=== PATIENT | female | born 1990 | race Caucasian/White ===

== ENCOUNTER 2021-05-10 10:52 | Emergency (ER) | payer OTHER, SELFPAY ==
[2021-05-10 10:57] VITALS: BP 130/88; PULSE 98; RESP 16; TEMP 36.7; O2SAT 100
--- NOTE | 2021-05-10 10:57 | ED.URI ---
HPI - URI/Sore Throat General Chief Complaint: Upper Respiratory Infection Stated Complaint: Sore Throat,Ear Pain Time Seen by Provider: 05/10/21 11:13 Source: patient and RN notes reviewed Mode of arrival: ambulatory Limitations: no limitations History of Present Illness HPI Narrative: 30-year-old female with history of asthma presents with concern for 2-day history of body aches, sore throat, nasal congestion, rhinorrhea, cough, ear pressure. She reports she took a rapid Covid test at home this morning that was negative, and is concerned she might not have done the test properly. She reports she has been using her albuterol inhaler every 2 hours, reports she last used last night. She is not vaccinated for Covid or flu. MD elicited complaint: cough and sore throat Related Data Allergies Allergy/AdvReac Type Severity Reaction Status Date / Time egg Allergy Severe Anaphylaxis Verified 01/21/21 10:58 venlafaxine AdvReac Mild Nausea Verified 04/11/21 13:29 Review of Systems Review of Systems: CONSTITUTIONAL: Reports malaise, fatigue. Denies chills, sweats, or fever. EYES: Denies visual changes, redness, or discharge. ENT: Reports rhinorrhea, congestion, sinus pain, otalgia and sore throat. CARDIOVASCULAR: Denies chest pain, palpitations, or edema. RESPIRATORY: Reports cough. Denies dyspnea. GASTROINTESTINAL: Denies abdominal pain, nausea, vomiting, diarrhea SKIN: Denies rash or itching. MUSCULOSKELETAL: Reports myalgia. NEUROLOGIC: Denies headache. All systems reviewed & are unremarkable except as noted in HPI and below PMFSH Past Medical History Medical History Anxiety Asthma Surgical History Surgical History History of loop electrical excision procedure (LEEP) 2016 Previous section x1 [place] teeth extracted 2013 Family History Family History Mother Asthma Sibling Hypertension Heart problem Social History Social History Social History: caffeine-coffee/soda Smoking status: Never smoker Alcohol intake: current Drinks per week: 2 Substance use: never Comments At time of signature, agree with nursing past medical, surgical, social and family history. There is no relevant family history pertinent to the presenting complaint Exam Narrative: GENERAL: Well-appearing, well-nourished, and in no acute distress. HEAD: Normocephalic EYES: PERRLA, conjunctivae clear ENT: Nares clear, clear discharge. Mucous membranes moist. TM pearly haq with dull light reflex bilaterally; no tragal tenderness. Oropharynx not erythematous without lesions. Tonsils not enlarged and without exudate, no drooling, no hoarseness, no trismus, uvula midline. NECK: Supple. No lymphadenopathy CHEST: Clear to auscultation, breath sounds equal. No wheezing, rhonchi, rales, or stridor. No respiratory distress, speaks in full sentences. HEART: Regular rate and rhythm. No murmur heard. SKIN: Warm, dry, no rash. NEURO: Alert and oriented x3. PSYCH: Normal mood and affect Course Course Emergency Course: Patient is aware of diagnosis, understands and agrees to treatment plan. Anticipatory guidance given. Patient agrees to follow-up as directed and is aware of reasons to seek care at the emergency department. Portions of this record may have been created with voice recognition software Vital Signs Vital signs: Reviewed. MDM - URI/Sore Throat MDM Narrative Medical decision making narrative: Differential diagnosis considered: Puckett virus, strep pharyngitis, allergic rhinitis, upper respiratory tract infection, sinusitis, rhinosinusitis, nasopharyngitis. viral pharyngitis, otitis media, otitis externa, pneumonia, bronchitis, viral cough syndrome, viral syndrome, and influenza. Exam findings show no acute conc
[2021-05-11 19:40] LABS: SARS-CoV-2 RNA PCR Positive
== END 2021-05-10 11:28 | disposition home or self-care (01) ==
PROVIDERS: Emergency Provider Nurse Practitioner; PCP Internal Medicine
DX: U07.1 COVID-19 (principal); J45.909 Unspecified asthma, uncomplicated
CPT/HCPCS: 87081; 87804; 87880; 99213; C9803; G0463; U0003; U0005

== ENCOUNTER 2021-12-20 09:47 | Outpatient (CLI) | payer OTHER, SELFPAY ==
--- NOTE | ~2021-12-20 | US_ITS ---
EXAMINATION: US venous doppler LE RT DATE: 12/20/2021 11:21 INDICATION: Superficial lump at the right lower limb TECHNIQUE: Grayscale ultrasound images without and with compression and Doppler ultrasound images of the right lower extremity veins were obtained. COMPARISON: None. FINDINGS: The visualized portions of right common femoral vein, profunda (deep) femoral vein, femoral vein, pop liteal vein, peroneal trunk, posterior tibial veins, peroneal veins, gastrocnemius vein and greater s aphenous vein outflow are patent. Subdermal 5 mm anechoic cystic lesion at the distal right thigh wit h subtle tract extending to the skin surface consistent with epidermoid cyst. IMPRESSION: 1. No deep venous thrombosis in the right lower limb. 2. Palpable abnormality of concern corresponds to a very superficial 5 mm likely epidermoid cyst. Reviewed, dictated and finalized at location A. IMPRESSION: 1. No deep venous thrombosis in the right lower limb. 2. Palpable abnormality of concern corresponds to a very superficial 5 mm likel y epidermoid cyst.
== END 2021-12-20 09:48 | disposition home or self-care (01) ==
PROVIDERS: PCP Internal Medicine; Visit Provider Clinical Nurse Specialist
DX: M79.89 Other specified soft tissue disorders (principal); R22.9 Localized swelling, mass and lump, unspecified
CPT/HCPCS: 93971

== ENCOUNTER 2022-01-31 13:54 | Outpatient (CLI) | payer OTHER, SELFPAY ==
[2022-01-31 18:39] LABS: Basophils Absolute Auto 0.1 K/mm3 (0.0-0.1); Basophils Percent Auto 1.4 % (0.2-1.2); Eosinophils Absolute Auto 0.8 K/mm3 (0-0.3); Eosinophils Percent Auto 7.5 % (0-4.4); Hematocrit 41.4 % (37.0-47.0); Hemoglobin 13.6 g/dL (12.0-15.0); Immature Granulocyte Absolute 0.02 K/mm3 (0.00-0.031); Immature Granulocyte Percent A 0.2 % (0-0.5); Lymphocytes Percent Auto 26.3 % (18.3-44.2); Mean Corpuscular HGB Conc 32.9 g/dl (32-36); Mean Corpuscular Hemoglobin 28.2 pg (26-34); Mean Corpuscular Volume 85.9 fl (80-100); Mean Platelet Volume 10.6 fl (7.4-10.4); Monocytes Absolute Auto 0.7 K/mm3 (0.1-0.6); Monocytes Percent Auto 6.9 % (2.6-8.5); Neutrophils Absolute Auto 5.9 K/mm3 (1.3-6.7); Neutrophils Percent Auto 57.7 % (45.5-73.1); Platelet Count Result 299 k/mm3 (150-375); Red Blood Count 4.82 M/mm3 (4.2-5.4); Red Cell Distribution Width 12.9 % (11.5-14.5); White Blood Count 10.3 K/mm3 (4.5-10.0)
[2022-01-31 19:16] LABS: Alanine Aminotransferase 18 U/L (6-35); Albumin Level 4.5 g/dL (3.5-5.1); Alkaline Phosphatase 58 U/L (38-126); Anion Gap 9 mmol/L (8-16); Aspartate Amino Transferase 57 U/L (14-36); Bilirubin,Total 0.4 mg/dL (0.2-1.3); Blood Urea Nitrogen 12 mg/dL (7-17); Calcium 9.5 mg/dL (8.4-10.2); Carbon Dioxide 29 mmol/L (22-30); Chloride 102 mmol/L (98-107); Estimated Glomerular Filt Rate > 60; Glucose 90 mg/dL (65-110); Potassium 3.8 mmol/L (3.4-5.0); Sodium 140 mmol/L (137-145)
[2022-01-31 19:21] LABS: Iron 93 ug/dL (37-170)
[2022-01-31 19:33] LABS: Percent Iron Saturation 26 % (20-50)
[2022-01-31 20:07] LABS: Ferritin 9.94 ng/mL (6.24-137)
[2022-01-31 20:17] LABS: Folic Acid 11.9 ng/mL (2.76->20)
== END 2022-01-31 13:55 | disposition home or self-care (01) ==
LOC: ANHGOSHLAB 13:56
PROVIDERS: PCP Internal Medicine; Visit Provider Clinical Nurse Specialist
DX: R23.3 Spontaneous ecchymoses (principal); F41.9 Anxiety disorder, unspecified
CPT/HCPCS: 36415; 80053; 82607; 82728; 82746; 83540; 83550; 84443; 85025

== ENCOUNTER 2022-02-20 15:30 | Outpatient (CLI) | payer OTHER, SELFPAY ==
--- NOTE | ~2022-02-20 | US_ITS ---
EXAMINATION: US transvaginal DATE: 02/20/2022 16:14 INDICATION: Vaginal bleeding Comparison:No prior studies for comparison. TECHNIQUE: Multiple transabdominal and endovaginal sonographic images of the pelvis performed. FINDINGS: The uterus measures 8 x 3.4 x 5.9 cm. The endometrial complex measures 7 mm. The right ovary measures 3.2 x 1.6 x 2.7 cm and the left ovary measures 2.6 x 2.4 x 1.9 cm. There ar e small follicles in each ovary. There is a left ovarian cyst measuring 1.9 cm. Normal doppler signal in both ovaries. There is no free fluid in the pelvis. There are no abnormal masses seen on either side. IMPRESSION: 1. Small left ovarian cyst measuring 1.9 cm. Reviewed, dictated and finalized at location A.
== END 2022-02-20 15:31 | disposition home or self-care (01) ==
LOC: ANHIMG 15:32
PROVIDERS: PCP Internal Medicine; Visit Provider Clinical Nurse Specialist
DX: N83.202 Unspecified ovarian cyst, left side (principal)
CPT/HCPCS: 76830

== ENCOUNTER 2022-05-28 08:42 | Emergency (ER) | payer OTHER, SELFPAY ==
--- NOTE | ~2022-05-28 | XR_ITS ---
EXAMINATION: XR chest 2V 05/28/2022 09:11 INDICATION: Cough with shortness of breath PROCEDURE: 2 view chest COMPARISON: No prior studies for comparison. FINDINGS: The lungs are clear. The lungs are mildly hyperinflated, which can be associated with react mario airway disease. The cardiomediastinal silhouette is within normal limits. There are no pleural e ffusions. There is no pneumothorax suspected. IMPRESSION: 1: NO ACUTE CARDIOPULMONARY DISEASE. Reviewed, dictated and finalized at location A. [employer]
[2022-05-28 08:50] VITALS: BP 117/77; PULSE 92; RESP 16; TEMP 36.9; O2SAT 100
--- NOTE | 2022-05-28 09:02 | ED.GENADULT ---
HPI - General Adult General Chief complaint: Upper Respiratory Infection Stated complaint: uri/sob Source: patient Mode of arrival: ambulatory Limitations: no limitations History of Present Illness HPI narrative: Patient presents for evaluation of respiratory symptoms for the last few days. Symptoms include sinus congestion, mucopurulent discharge from her nares, nonproductive cough and shortness of breath. She has an underlying history the of asthma. She has been using her albuterol inhaler around the clock without considerable improvement in her symptoms thereafter. Her son has had several respiratory infections over the past two months. She does not smoke. She has had COVID in the past back in April 2021. She reports some diarrhea recently. No nausea or vomiting. She has tried mucinex for her symptoms. Related Data Home Medications Medication Instructions Recorded Confirmed cetirizine 10 mg tablet (Zyrtec) 10 mg PO DAILY 04/21/22 05/28/22 Allergies Allergy/AdvReac Type Severity Reaction Status Date / Time egg Allergy Severe Anaphylaxis Verified 05/28/22 08:48 venlafaxine AdvReac Mild Nausea Verified 05/28/22 08:48 Review of Systems Review of Systems: CONSTITUTIONAL: Denies fever, chills, or sweats. EYES: Denies visual changes, redness, or discharge. ENT: Reports sinus congestion and mucopurulent discharge from her nares. Reports recent sore throat, now resolved. CARDIOVASCULAR: Denies chest pain, palpitations, or edema. RESPIRATORY: reports chest congestion, cough, shortness of breath. GASTROINTESTINAL:Reports diarrhea. Denies abdominal pain, nausea, or vomiting GENITOURINARY: Denies dysuria or hematuria. SKIN: Denies rash or itching. MUSCULOSKELETAL: Denies back pain, joint pain, or myalgia. NEUROLOGIC: Denies headache, numbness, dizziness, or weakness. PSYCHIATRIC: Denies anxiety or depression. [facility] Past Medical History Medical History Anxiety Asthma COVID-19 Surgical History Surgical History History of loop electrical excision procedure (LEEP) 2016 Previous section (12/15/19) x1 [place] teeth extracted 2013 Family History Family History Mother Asthma Sibling Hypertension Heart problem Grandparent Acute myocardial infarction paternal grandfather Social History Social History Social History: caffeine-coffee/soda Smoking status: Never smoker Alcohol intake: current Drinks per week: 2 Substance use: never Substance use type: does not use Lack of Transportation: No Lack of Food: Never True Current Housing: I Have Housing Concerned About Future Housing: No Difficulty Paying Gas/Electric Bills: No Difficulty Paying for Meds: No Currently Unemployed: No Education: Bachelor's Degree Difficulty w/ Childcare or Family Care: No Additional living arrangements comments: 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 HEAD: Normocephalic, atraumatic. EYES: PERRLA and EOMI. ENT: Nares clear, no rhinorrhea or epistaxis. Mucous membranes moist. Oropharynx without tonsillar hypertrophy exudate or other lesions. Bilateral TMs pearly haq nonbulging NECK: Supple. No adenopathy or masses. No carotid bruits or JVD CHEST: Clear to auscultation. No respiratory distress. No wheezes rales or rhonchi HEART: Regular rate and rhythm. No murmur heard. Normal peripheral pulses. ABDOMEN: Soft, nontender, nondistended, normal active bowel sounds. EXTREMITIES: Normal range of
[2022-05-28] MEDS: methylPREDNISolone SOD SUCC 125 MG VIAL IM (09:10)
[2022-05-28] MEDS: ALBUTEROL SULFATE NEB 2.5 MG/3 ML INH INHALATION (09:12)
[2022-05-28] MEDS: IPRATROPIUM BR 0.02% INH SOLN 0.5 MG/2.5 ML VIAL INHALATION (09:12)
== END 2022-05-28 10:03 | disposition home or self-care (01) ==
PROVIDERS: Emergency Provider Nurse Practitioner; PCP Clinical Nurse Specialist
DX: J06.9 Acute upper respiratory infection, unspecified (principal); J45.901 Unspecified asthma with (acute) exacerbation; Z20.822 Contact with and (suspected) exposure to COVID-19; Z86.16 Personal history of COVID-19
CPT/HCPCS: 71046; 87426; 87804; 94640; 96372; 99213; C9803; G0463; J2930

== ENCOUNTER 2022-11-12 17:30 | Emergency (ER) | payer OTHER, SELFPAY ==
[2022-11-12 17:37] VITALS: BP 96/84; PULSE 99; RESP 16; TEMP 36.8; O2SAT 100
--- NOTE | 2022-11-12 17:40 | ED.URI ---
HPI - URI/Sore Throat General Chief Complaint: Upper Respiratory Infection Stated Complaint: cough,muscle sore Time Seen by Provider: 11/12/22 17:41 Source: patient and RN notes reviewed Mode of arrival: ambulatory Limitations: no limitations History of Present Illness HPI Narrative: 32 y/o female with hx asthma presented for c/o cough, sinus congestion and ear pressure, with neck and low back soreness for one week. Endorses deep breaths cause coughing fits, cough is worse in the morning and at night, and is productive of green mucous. Patient has used rescue inhaler 5 times today without improvement in any symptoms. Also taking Zyrtec, sudafed, and Theraflu. States she feels horrible. Did not test for covid. Denies sick contacts. Denies sob, wheezing, n/v/d/f/c. MD elicited complaint: cough Related Data Home Medications Medication Instructions Recorded Confirmed cetirizine 10 mg tablet (Zyrtec) 10 mg PO DAILY 04/21/22 11/12/22 albuterol sulfate 90 mcg/actuation 2 inh inhalation Q4H PRN shortness 11/12/22 11/12/22 aerosol inhaler of breath or wheezing Allergies Allergy/AdvReac Type Severity Reaction Status Date / Time egg Allergy Severe Anaphylaxis Verified 11/12/22 17:36 venlafaxine AdvReac Mild Nausea Verified 11/12/22 17:36 Review of Systems Review of Systems: CONSTITUTIONAL: Denies malaise, chills, sweats, fever EYES: Denies visual changes, redness, or discharge ENT: Reports rhinorrhea, congestion, sinus pain, otalgia, denies sore throat CARDIOVASCULAR: Denies chest pain, palpitations, edema RESPIRATORY: Reports cough, post nasal drainage. Denies dyspnea GASTROINTESTINAL: Denies abdominal pain, nausea, vomiting, diarrhea SKIN: Denies rash or itching MUSCULOSKELETAL: Endorses myalgia NEUROLOGIC: Denies headache PMFSH Past Medical History Medical History Abnormal bleeding in menstrual cycle Abnormal bruising Abnormal laboratory test result Allergies Anxiety Asthma Contraceptive management COVID-19 Discoloration of skin Encounter to establish care Galactorrhea Irregular menses Missed menses Poison jose Procreative management Screening for lipoid disorders Screening for metabolic disorder Upper respiratory infection Vitamin D deficiency Surgical History Surgical History History of loop electrical excision procedure (LEEP) 2016 Previous section (12/15/19) x1 [place] teeth extracted 2013 Family History Family History Mother Asthma Sibling Hypertension Heart problem Grandparent Acute myocardial infarction paternal grandfather Social History Social History Social History: caffeine-coffee/soda Smoking status: Never smoker Alcohol intake: current Drinks per week: 2 Substance use: never Substance use type: does not use Lack of Transportation: No Lack of Food: Never True Current Housing: I Have Housing Concerned About Future Housing: No Difficulty Paying Gas/Electric Bills: No Difficulty Paying for Meds: No Currently Unemployed: No Education: Bachelor's Degree Difficulty w/ Childcare or Family Care: No Living arrangements: other Additional living arrangements comments: Occupation/Education: other 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 HEAD: Normocephalic EYES: PERRLA, conjunctivae clear ENT: Mucous membranes moist. Nasal congestion, TMs pearly haq with dull light reflex bilaterally; no tragal tenderness. Oropharynx not erythematous without lesions or exudate, no drool
== END 2022-11-12 17:58 | disposition home or self-care (01) ==
PROVIDERS: Emergency Provider Nurse Practitioner Family; PCP Internal Medicine
DX: J06.9 Acute upper respiratory infection, unspecified (principal); J45.909 Unspecified asthma, uncomplicated; E55.9 Vitamin D deficiency, unspecified; F41.9 Anxiety disorder, unspecified
CPT/HCPCS: 99213; G0463

== ENCOUNTER 2023-02-04 10:20 | Emergency (ER) | payer OTHER, SELFPAY ==
--- NOTE | 2023-02-04 10:25 | ED.URI ---
HPI - URI/Sore Throat General Chief Complaint: Upper Respiratory Infection Stated Complaint: Sore Throat;Stiffness in neck Time Seen by Provider: 02/04/23 10:30 Source: patient Mode of arrival: ambulatory Limitations: no limitations History of Present Illness HPI Narrative: Afsaneh is a 32-year-old female patient presenting to the clinic today with complaints of sore throat, neck stiffness, runny nose, headache, and congestion x1 day. She reports her symptoms started last night. Reports that she has been in [place] all weekend and was around a lot of people. She denies any known fever or chills. MD elicited complaint: sore throat and nasal congestion Related Data Home Medications Medication Instructions Recorded Confirmed cetirizine 10 mg tablet (Zyrtec) 10 mg PO DAILY 04/21/22 02/04/23 albuterol sulfate 90 mcg/actuation 2 inh inhalation Q4H PRN shortness 11/12/22 02/04/23 aerosol inhaler of breath or wheezing Allergies Allergy/AdvReac Type Severity Reaction Status Date / Time egg Allergy Severe Anaphylaxis Verified 02/04/23 10:29 venlafaxine AdvReac Mild Nausea Verified 02/04/23 10:29 Review of Systems Review of Systems: Pertinent positives per HPI. Patient denies any fever, chills, rash, headache, visual changes, dizziness, cough, shortness of breath, chest pain, palpitations, nausea, vomiting, diarrhea, constipation, abdominal pain, or any urinary issues. [facility] Past Medical History Medical History Abnormal bleeding in menstrual cycle Abnormal bruising Abnormal laboratory test result Allergies Anxiety Asthma Contraceptive management COVID-19 Discoloration of skin Encounter to establish care Galactorrhea Irregular menses Missed menses Poison jose Procreative management Screening for lipoid disorders Screening for metabolic disorder Upper respiratory infection Vitamin D deficiency Surgical History Surgical History History of loop electrical excision procedure (LEEP) 2016 Previous section (12/15/19) x1 [place] teeth extracted 2013 Family History Family History Mother Asthma Sibling Hypertension Heart problem Grandparent Acute myocardial infarction paternal grandfather Social History Social History Social History: caffeine-coffee/soda Smoking status: Never smoker Alcohol intake: current Drinks per week: 2 Substance use: never Substance use type: does not use Lack of Transportation: No Lack of Food: Never True Current Housing: I Have Housing Concerned About Future Housing: No Difficulty Paying Gas/Electric Bills: No Difficulty Paying for Meds: No Currently Unemployed: No Education: Bachelor's Degree Difficulty w/ Childcare or Family Care: No Living arrangements: other Additional living arrangements comments: Occupation/Education: other 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 There is no relevant family history pertinent to the patient complaint. Exam Narrative: General: Well-developed, well nourished, in no apparent distress Head: Normocephalic, atraumatic Eyes: Pupils equally round and reactive to light bilaterally, EOM intact, sclera and conjunctive clear, no discharge, lids normal Ears: TMs intact and clear, ear canals clear, no drainage, grossly hearing normal. Nose: Nares patent, clear nasal discharge, no inflammation, no sinus tenderness. Mouth: Oral pharynx red with mild tonsillar enlargement without lesio
[2023-02-04 10:30] VITALS: BP 114/82; PULSE 104; RESP 18; TEMP 37; O2SAT 100
[2023-02-04 10:38] VITALS: BP 114/82; PULSE 104; RESP 18; TEMP 37; O2SAT 100
--- NOTE | 2023-02-04 14:00 | PC.NURSE ---
1058- i entered in error a positive result on pts covid, and this patient is negative, and management aware so they can change the result. thanks.
== END 2023-02-04 10:58 | disposition home or self-care (01) ==
PROVIDERS: Emergency Provider Nurse Practitioner Family; PCP Clinical Nurse Specialist
DX: J02.0 Streptococcal pharyngitis (principal); Z20.822 Contact with and (suspected) exposure to COVID-19; J45.909 Unspecified asthma, uncomplicated; Z86.16 Personal history of COVID-19; F41.9 Anxiety disorder, unspecified
CPT/HCPCS: 87426; 87880; 99213; C9803; G0463

== ENCOUNTER 2023-06-05 00:32 | Day surgery (SDC) | payer OTHER, SELFPAY ==
[2023-05-23 08:33] VITALS: BMI 22.3
--- NOTE | 2023-06-01 10:54 | SUR.PREOP ---
Patient called regarding upcoming procedure. Reviewed preop instructions, appointment times, and procedure prep.
[2023-06-05 07:03] VITALS: BP 121/81; PULSE 67; RESP 18; TEMP 36.8; O2SAT 99
[2023-06-05] MEDS: LACTATED RINGERS 1,000 ML 150 ML IV CONT (07:15)
--- NOTE | 2023-06-05 07:52 | WPDANESEPPF ---
Anes - Initial Pre Proc Eval Procedure: Operation Date: 06/05/23 08:00 Proposed Procedures p Esophagogastroduodenoscopy & Colonoscopy - Ayo Garza MD Date/Time: 06/05/23 07:52 Surgeon: Aoy Garza MD Pre Op Diagnosis: abdominal pain, nausea, dysphagia,gaseous Patient Data Age: 32 Gender: F Height: 1.63 m Weight: 58.1 kg Last Vital Signs Temp 98.2 F 06/05/23 07:03 Pulse 67 06/05/23 07:03 Resp 18 06/05/23 07:03 BP 121/81 06/05/23 07:03 Pulse Ox 99 06/05/23 07:03 O2 Del Method Room Air 06/05/23 07:03 Allergies Allergy/AdvReac Type Severity Reaction Status Date / Time egg Allergy Severe Anaphylaxis Verified 06/05/23 07:02 venlafaxine AdvReac Mild Nausea Verified 06/05/23 07:02 Home Medications Medication Instructions Recorded Confirmed Type cetirizine 10 mg tablet (Zyrtec) 10 mg PO DAILY 04/21/22 05/23/23 History albuterol sulfate 90 mcg/actuation 2 inh inhalation Q4H PRN shortness 11/12/22 05/23/23 History aerosol inhaler of breath or wheezing omeprazole 20 mg capsule,delayed 20 mg PO DAILY 1 month #30 caps 05/18/23 05/23/23 Rx release fluoxetine 10 mg capsule (Prozac) 10 mg PO DAILY 05/23/23 05/23/23 History Patient hx anesthesia problems: none Family hx anesthesia problems: none Results Review: All pre-operative results and documents have been reviewed as part of the pre-operative evaluation. [facility] Past Medical History Medical History (Updated 05/18/23 @ 10:15 by Carey Reeves APN-C) Abnormal bleeding in menstrual cycle Abnormal bruising Abnormal laboratory test result Allergies Anxiety Asthma Contraceptive management COVID-19 Discoloration of skin Encounter to establish care Galactorrhea Irregular menses Missed menses Nausea Poison jose Procreative management Screening for lipoid disorders Screening for metabolic disorder Upper respiratory infection Vitamin D deficiency Surgical History Surgical History History of loop electrical excision procedure (LEEP) 2016 Previous section (12/15/19) x1 [place] teeth extracted 2014 Family History Family History Mother Asthma Sibling Hypertension Heart problem Grandparent Acute myocardial infarction paternal grandfather Social History Social History (Reviewed 03/01/23 @ 09:44 by Madelaine Montgomery 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 the Patient): Straight or Heterosexual Spiritual care concerns: No Anes - Eval Final PreProcedure Day of Procedure 06/05/23 07:52 Patient weight: normal Heart: regular rate and rhythm Lungs: clear to auscultation Airway: Mallampati scale class II Neurological: alert and oriented Last oral intake: >/= 8 hours ASA classification: II Emergent: no Anesthetic plan: proceed Anesthesia type and monitoring: general GIVS and standard monitoring Results Review: All pre-operative results and documents have been reviewed as part of the pre-operative evaluation. Informed Consent: The patient's anesthetic plan and its attendant risks and benefits were discussed with the patient/family/POA. Questions
--- NOTE | 2023-06-05 08:00 | WPDHPUPDATE1 ---
History and Physical Update Update Date/Time: 06/05/23 08:00 History and Physical has been reviewed, including an updated exam of the patient. There are NO changes in the patient's condition. Risks, benefits, and alternatives have been discussed and questions answered. Patient agrees to proceed with procedure.
[2023-06-05 08:40] VITALS: BP 86/54; PULSE 70; RESP 18; O2SAT 100
--- NOTE | 2023-06-05 08:40 | SUR.OPER ---
EGD START 810, END 820 COLONOSCOPY START 825, END 835
[2023-06-05 08:50] VITALS: BP 94/64; PULSE 57; RESP 18; O2SAT 100
[2023-06-05 09:00] VITALS: BP 110/94; PULSE 57; RESP 18; O2SAT 100
== END 2023-06-05 09:08 | disposition home or self-care (01) ==
PROVIDERS: PCP Internal Medicine; Visit Provider Internal Medicine Gastroenterology
PROC: 0DJ08ZZ Inspection of Upper Intestinal Tract, Via Natural or Artificial Opening Endoscopic (ICD-10-PCS; CPT 43235; principal; 2023-06-05 08:00)
DX: K59.00 Constipation, unspecified (principal); K22.2 Esophageal obstruction; K20.0 Eosinophilic esophagitis; K29.50 Unspecified chronic gastritis without bleeding; J45.909 Unspecified asthma, uncomplicated; F41.9 Anxiety disorder, unspecified; Z79.51 Long term (current) use of inhaled steroids
CPT/HCPCS: 45378; 43249; 43239; 88305; C1726; J2405; J2704; J3010; J7120

== ENCOUNTER 2023-10-21 08:05 | Emergency (ER) | payer OTHER, SELFPAY ==
--- NOTE | 2023-10-21 08:08 | ED.GENADULT ---
HPI - General Adult General Chief complaint: Upper Respiratory Infection Stated complaint: EARACHE/CHEST PAIN/COUGH/CAN'T TAKE DEEP BREATH Time Seen by Provider: 10/21/23 08:08 Source: patient Mode of arrival: ambulatory Limitations: no limitations History of Present Illness HPI narrative: 32-year-old female patient presents to the [facility] with complaints of cold symptoms for the past week. Patient states she has had congestion, runny nose, pain to bilateral ears and a cough. Patient does have history of asthma and [place] been introduced to some more allergens and normal. Patient states that her son that she has been taking care of also currently has croup. Patient states she has been coughing a lot and has been having a lot of pain in her chest when she takes a breath in and feels that she just cannot catch her breath. Patient states she has tried [id number] cough medication, Tamiflu. Patient states she does take Zyrtec daily. Denies any fevers, body aches or chills. Denies any abdominal pain, nausea, vomiting or diarrhea Related Data Home Medications Medication Instructions Recorded Confirmed cetirizine 10 mg tablet (Zyrtec) 10 mg PO DAILY 04/21/22 10/21/23 Allergies Allergy/AdvReac Type Severity Reaction Status Date / Time egg Allergy Severe Anaphylaxis Verified 10/21/23 08:15 venlafaxine AdvReac Mild Nausea Verified 10/21/23 08:15 Review of Systems Review of Systems: CONSTITUTIONAL: Denies fever, chills, or sweats. EYES: Denies visual changes, redness, or discharge. ENT: positive rhinorrhea, congestion, denies sore throat, positive bilateral otalgia. CARDIOVASCULAR: positive chest pain with inhalation, deniespalpitations, or edema. RESPIRATORY: positive cough with intermittent dyspnea. GASTROINTESTINAL: Denies abdominal pain, nausea, vomiting, or diarrhea. GENITOURINARY: Denies dysuria or hematuria. SKIN: Denies rash or itching. MUSCULOSKELETAL: Denies back pain, joint pain, or myalgia. NEUROLOGIC: Denies headache, numbness, or weakness. PSYCHIATRIC: Denies anxiety or depression. [facility] Past Medical History Medical History Abnormal bleeding in menstrual cycle Abnormal bruising Abnormal laboratory test result Allergies Anxiety Asthma Contraceptive management COVID-19 Discoloration of skin Encounter to establish care Eosinophilic esophagitis Galactorrhea Irregular menses Missed menses Nausea Poison jose Procreative management Screening for lipoid disorders Screening for metabolic disorder Upper respiratory infection Vitamin D deficiency Surgical History Surgical History History of loop electrical excision procedure (LEEP) 2016 Previous section (12/15/19) x1 [place] teeth extracted 2013 Family History Family History Mother Asthma Sibling Hypertension Heart problem Grandparent Acute myocardial infarction paternal grandfather Social History Social History Social History: caffeine-coffee/soda Smoking status: Never smoker Alcohol intake: current Drinks per week: 2 Substance use: never Substance use type: does not use Lack of Transportation: No Lack of Food: Never True Current Housing: I Have Housing Concerned About Future Housing: No Difficulty Paying Gas/Electric Bills: No Difficulty Paying for Meds: No Currently Unemployed: No Education: Bachelor's Degree Difficulty w/ Childcare or Family Care: No Living arrangements: with family Additional living arrangements comments: Occupation/Education: other 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
[2023-10-21 08:15] VITALS: BP 128/86; PULSE 95; RESP 16; TEMP 36.6; O2SAT 100
== END 2023-10-21 08:30 | disposition home or self-care (01) ==
PROVIDERS: Emergency Provider Nurse Practitioner Family; PCP Clinical Nurse Specialist
DX: R09.1 Pleurisy (principal); J02.9 Acute pharyngitis, unspecified; R05.9 Cough, unspecified; J45.909 Unspecified asthma, uncomplicated; Z86.16 Personal history of COVID-19
CPT/HCPCS: 99213; G0463

== ENCOUNTER 2024-04-10 12:51 | Outpatient (CLI) | payer OTHER, SELFPAY ==
--- NOTE | ~2024-04-10 | MMUS_ITS ---
EXAMINATION: MM diagnostic kameron BI w omar, US breast LT limited HISTORY: Left breast pain TECHNIQUE: 3-D tomosynthesis images of the breasts were performed and synthetic 2-D images were gener ated. CAD analysis was submitted and interpreted. High resolution limited left breast ultrasound was performed. COMPARISON: None BREAST PARENCHYMAL COMPOSITION:Dense: The breasts are extremely dense, which lowers the sensitivity o f mammography. FINDINGS: MAMMOGRAPHIC FINDINGS: Parenchymal pattern of the breasts is unremarkable. No suspicious mass lesion or distortion seen. No suspicious microcalcification. ULTRASOUND: Sonographic imaging of the area of concern left breast shows no significant abnormality. No solid or cystic lesion identified. IMPRESSION: No mammographic evidence of malignancy. No mammographic or sonographic correlate seen at the area of pain in the left breast. BI-RADS Category 1: Negative Reviewed, dictated and finalized at [facility]. 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 No mammographic or sonographic correla te seen at the area of pain in the left breast. BI-RADS Category 1: Negative
== END 2024-04-10 12:52 | disposition home or self-care (01) ==
LOC: ANHIMG 12:52
PROVIDERS: PCP Clinical Nurse Specialist; Visit Provider Student in an Organized Health Care Education/Training Program
DX: N64.4 Mastodynia (principal)
CPT/HCPCS: 76642; 77062; 77066; G0279

== ENCOUNTER 2024-04-24 02:23 | Day surgery (SDC) | payer OTHER, SELFPAY ==
[2024-04-14 15:28] VITALS: BMI 22.4
--- NOTE | 2024-04-14 15:49 | PC.NURSE ---
Report to the Outpatient Waiting Room, entrance under the green pavilion located off [facility], at 0600 on 04-24-24. Planned Procedure Time: 0730.? Time changes happen often and if your time is changed the preop area will call you the afternoon before. - You and your visitor will be asked to self-screen and do not enter if you have any COVID symptoms. Please call surgeon if you need to reschedule. - A mask is optional within the hospital at this time. Patients may have clear liquids (water, carbonated beverages, clear teas, apple juice) until 3 hours prior to surgery with a maximum of 20 ounces. 0430 - No food from midnight until time of surgery and no smoking. This includes no chewing gum, candy or mints. - Infants may have breast milk until 4 hours before surgery, infant formula 6 hours prior to surgery. - Children will be allowed to drink immediately following surgery.? If applicable, please bring a bottle or sippy cup to assist with drinking. Juice, water, soda, and popsicles are readily available.? For infants on formula, please bring formula the day of surgery.? Pacifiers are allowed. Take only the following medications with a SIP of water on the morning of surgery: Fluoxetine Bring inhaler to the hospital DOS with you. DO NOT STOP ANY OF YOUR OTHER PRESCRIPTION MEDICATIONS PRIOR TO SURGERY EXCEPT THE FOLLOWING Medications to discontinue per physician: N/A Please no make-up, nail italian, hairspray, perfume, deodorant, or body powder the day of surgery.? No jewelry (including any body piercings) or valuables the day of surgery, leave them at home.? Please take a shower or bath the night before, or the morning of, surgery with an antibacterial soap.? Wear comfortable, loose fitting clothing.? Children are encouraged to wear pajamas. - Jewelry must be removed prior to entering the operating room.? Rings and piercings that are not removed may be cut off. - The hospital will not accept responsibility for valuables.? - Please leave all valuables, including medications, at home the day of surgery. If you are going home after surgery, a licensed tour bus driver must drive you home.? - NO public transportation without another adult if you receive anesthesia. - We recommend that an adult stay with you for 24 hours following discharge. - We also recommend that you do not drive, make important decision, drink alcoholic beverages, or take any drugs that were not prescribed by your health care provider for at least 24 hours after your discharge time. For Pediatric surgeries, we recommend two adults accompany the child home. Follow any additional instructions given to you from your surgeon. Telephone instructions given to Steven Wilburn and asked if any additional questions and then verbalized understanding. Patient advised to call surgeon office or pre surgery nurse liaison [phone] if any additional questions.
[2024-04-24] VITALS (10 sets, daily range): BP systolic 98–141; BP diastolic 64–92; PULSE 74–98; RESP 12–18; TEMP 36.5–36.9; O2SAT 98–100; BMI 22.3
--- NOTE | 2024-04-24 06:49 | P.PNAN_ITS ---
Anes - Eval Final PreProcedure Day of Procedure 04/24/24 06:49 Patient weight: normal Heart: regular rate and rhythm Lungs: clear to auscultation Airway: Mallampati scale class II Neurological: alert and oriented Last oral intake: >/= 8 hours ASA classification: II Emergent: no Anesthetic plan: proceed Anesthesia type and monitoring: general LMA and standard monitoring Results Review: All pre-operative results and documents have been reviewed as part of the pre- operative evaluation. Informed Consent: The patient's anesthetic plan and its attendant risks and benefits were discussed with the patient/family/POA. Questions were solicited and answers provided to the satisfaction of the patient/family/POA.
--- NOTE | 2024-04-24 07:06 | WPDHPUPDATE1 ---
History and Physical Update Update Date/Time: 04/24/24 07:06 History and Physical has been reviewed, including an updated exam of the patient. There are NO changes in the patient's condition. Risks, benefits, and alternatives have been discussed and questions answered. Patient agrees to proceed with procedure.
--- NOTE | 2024-04-24 07:17 | W.PM.PROC2 ---
Procedure Note - Detailed Date of Procedure 04/24/24 Pre-op Diagnosis Micromastia Post-op Diagnosis Same Procedure Performed Bilateral augmentation mammaplasty Surgeon Herman Garner MD Anesthesia General Findings Bilateral Inspira Smooth Cohesive 340cc Subfascial Right REF# [id number] SN [id number] Left REF# [id number] SN [id number] Description of Procedure She is here today for bilateral breast augmentation. Previously and again today the risks, benefits, alternatives were discussed in extensive detail. I wanted her to be very realistic about the risks involved as well as expectations. We discussed aftercare and what to monitor for. Made sure answered all of her questions to her satisfaction today and consent was obtained. Marked in the preoperative holding area with their verification. The patient was taken to the operating room placed supine on the operating table. Anesthesia was provided by anesthesiology. A surgical time-out was taken. We cleansed the skin and 1% lidocaine and 0.25% Marcaine with epinephrine was used anesthetize as a field block. She was prepped and draped in a standard sterile fashion. Tegaderm nipple Chandler were placed. A 15 blade used to make an incision along the inframammary fold. Dissection was continued at 45 degree angle until the chest wall as identified. I elevated a subfascial pocket in the appropriate dimensions based on our preoperative planning for the implant. I then copiously irrigated with saline solution and verified a strict hemostasis. Next the use a triple antibiotic and Betadine containing solution to irrigate the pocket. I washed my gloves with the triple antibiotic and Betadine solution. We washed the implant immediately upon opening it with this solution and only opened it when we needed it. I used implant funnel and no-touch technique. The implant was introduced into the pocket using the funnel. Having verified positioning of the implant this was closed using 2-0 PDS followed by 3-0 Monocryl in a running subcuticular 4-0 Monocryl followed by tissue glue. Fluffs and surgical bra were placed. Patient was awoke and taken to PACU without difficulty. All instrument sponge counts were correct at the end of the case. Estimated Blood Loss 25 Drains No Packing No Pathology None sent Complications No immediate complications Condition Stable Disposition PACU
[2024-04-24] MEDS: TRANEXAMIC ACID 1,000MG/ISO100 1,000 MG/100 ML BAG 200 MG IVPB (07:27)
[2024-04-24] MEDS: ceFAZolin 2 GM/D5W 50 ML 2 GM/50 ML BAG IVPB (07:27)
[2024-04-24] MEDS: NACL 0.9% IRRIG POUR BOTTLE 900 ML, GENTAMICIN SULFATE INJ 160 MG, ceFAZolin 2 GM, POVI... IRRIGATION (07:27)
[2024-04-24] MEDS: LIDO 1%/EPINEPHRINE 1:100,000 50 ML VIAL 30 ML INFILTRATE (07:27)
[2024-04-24] MEDS: BUPivacaine HCL 0.25% PF 30 ML VIAL INFILTRATE (07:27)
[2024-04-24] MEDS: FAMOTIDINE 20 MG/2 ML VIAL IV PUSH (07:38)
[2024-04-24] MEDS: ONDANSETRON INJ 4 MG/2 ML VIAL IV PUSH (08:13)
[2024-04-24] MEDS: LACTATED RINGERS 1,000 ML 30 ML IV CONT ×2 (08:23)
[2024-04-24 08:42] LABS: BEDSIDEPREGUCG Negative (Negative)
[2024-04-24] MEDS: HYDROmorphone HCL INJ (*CRX) 1 MG/ML SYR 0.5 MG IV PUSH ×4 (08:45→09:14)
[2024-04-24] MEDS: oxyCODONE HCL (*CRX) 5 MG TAB IR PO (09:48)
== END 2024-04-24 10:37 | disposition home or self-care (01) ==
PROVIDERS: PCP Clinical Nurse Specialist; Visit Provider Surgery Plastic and Reconstructive Surgery
PROC: (CPT 19325; principal; 2024-04-24 07:30)
DX: Z41.1 Encounter for cosmetic surgery (principal); N64.82 Hypoplasia of breast
CPT/HCPCS: 19325; A9270; J0690; J1100; J1171; J1580; J2003; J2004; J2250; J2405; J2704; J3010; J7120

== ENCOUNTER 2024-06-17 15:13 | Emergency (ER) | payer OTHER, SELFPAY ==
[2024-06-17 15:37] VITALS: BP 121/89; PULSE 83; RESP 20; TEMP 36.7; O2SAT 100
--- OUTSIDE RECORDS SUMMARY | 2024-06-17 15:37 | XMS_ITS | Clinical Summary ---
Author Organization [facility] Address [address] [place] [address] [place] [address] Phone Care Team Providers Care Metal Products Viewer Name Role Phone Smiley Rascon DO Primary Care Provider + Allergies Active Allergy Reactions Criticality Noted Date Comments Eggshell Membrane Anaphylaxis High 11/02/2017 Medications esomeprazole (NexIUM) 20 mg Capsule, Delayed Release(E.C.) Take 20 mg by mouth daily before breakfast. Active cetirizine (ZyrTEC) 10 mg tablet Take 10 mg by mouth daily. Active fluticasone (FLOVENT HFA) 110 mcg/actuation HFA Aerosol InhalerIndicatio ns:Asthma, unspecified asthma severity, unspecified whether complicated, unspecified whether persistent Take 1 Puff by inhalation 2 times daily. 12 Gram 2 8 Active albuterol HFA 90 mcg inhalerIndicatio ns:Asthma, unspecified asthma severity, unspecified whether complicated, unspecified whether persistent Take 2 Puffs by inhalation every 4 hours as needed for Shortness of Breath. 54 Gram 1 0 Active FLUoxetine (PROzac) 10 mg tabletIndication s:MAREK (generalized anxiety disorder) Take 1 Tablet (10 mg) by mouth daily. 360 Tablet 0 Active celecoxib (CeleBREX) 100 mg capsuleIndicatio ns:History of gastric ulcer Take 1 Capsule (100 mg) by mouth 2 times daily as needed for Pain. 60 Capsule 1 0 Active Active Problems Problem Noted Date Diagnosed Date S/P section 12/15/2019 Situational mixed anxiety and depressive disorde r 11/28/2017 Hyperhidrosis 11/28/2017 History of esophageal dilatation 11/02/2017 Overview (11/02/2017): Single procedure GERD (gastroesophageal reflux disease) 8 Gastric ulcer without hemorrhage or perforation 11/02/2017 Moderate persistent asthma without complication 11/02/2017 Seasonal allergic rhinitis 11/02/2017 Immunizations Immunization Administration Dates Next Due (ADACEL/BOOSTRIX)(10 YR UP) TDAP VACCINE, 0.5ML, IM 07/15/2012 (IPOL)(6 WKS AND UP) POLIOVI ROSA ELENA VACCINE, INACTIVATED (IPV), 3 DOSE, SUBCUT OR IM 07/15/2012 Adenovirus Vaccine Type 4 07/15/2012 Meningococcal Polysaccharide Vaccine SQ 07/15/19 13 Family History Medical History Relation Name Comments Healthy Father Healthy Mother Relation Name Status Comments Father Mother Social History Tobacco Use Types Packs/Day Years Used Date Smoking Tobacco: Never Smokeless Tobacco: Never Tobacco Cessation:Counseling Given: No Alcohol Use Standard Drinks/Week Comments No 0 (1 standard drink = 0.6 oz pur e alcohol) Comments No Sex and Gender Information Value Date Recorded Sex Assigned at Not on file Legal Sex Female 8:50 AM CDT Gender Identity Not on file Sexual Orientation Not on file Last Filed Vital Signs Vital Sign Reading Time Taken Comments Blood Pressure 144/92 04/08/2020 1:32 PM DENTAL CLAIMS PROCESSOR Pulse 62 04/08/2020 1:32 PM DENTAL CLAIMS PROCESSOR Temperature 36.6 ??C (97.9 ??F) 12/17/2019 7:23 AM CD T Respiratory Rate 18 12/17/2019 7:23 AM CDT Oxygen Saturation 97% 04/08/2020 1:32 PM DENTAL CLAIMS PROCESSOR Inhaled Oxygen Concentration - - Weight 64.9 kg (143 lb) 04/08/2020 1:32 PM DENTAL CLAIMS PROCESSOR Height 162.6 cm (5' 4 ) 04/08/2020 1:32 PM DENTAL CLAIMS PROCESSOR Body Mass Index 24.55 04/08/2020 1:32 PM DENTAL CLAIMS PROCESSOR Plan of Treatment Health Maintenance Due Date Last Done Comments PNEUMOCOCCAL VACCINE 0-64 YEARS (1 of 2 - PCV) 10/28/1997 HEPATITIS B VACCINES (1 of 3 - 19+ 3-dose series) 10/28/2010 CERVICAL CANCER SCREENING 04/08/20212019, 03/10/2019, 08/03/2017 DTAP/TDAP/TD VACCINES (2 - T d or Tdap) 07/15/2022 07/15/2012 INFLUENZA VACCINE (#1) 2023 HPV VACCINES Aged Out No longer eligi ble based on patient's age to complete this topic Procedures Procedure Name Priority Date/Time Associated Diagnosis Comments CERV/VAG CYTO AGE BASED SCREEN PAP Routine 04/08/2020 1:27 PM DENTAL CLAIMS PROCESSOR Well woman exam with routine gynecological exam from Last 3 Months or Most Recently Relevant to Health Maintenance Results * CERV/VAG CYTO AGE BASED SCREEN PAP (04/08/2020 1:27 PM DENTAL CLAIMS PROCESSOR) COMMENT (PAP): SEE COMMENT 0 11:38 AM DENTAL CLAIMS PROCESSOR [facility] Comment: This order for age-based cervical cancer and STI screening follows ACOG guidelines(PB 168, 140, VTF421). See individual assays for performing site location. CLINICAL INFORMATION SCREENING 04/20/2020 11:38 AM DENTAL CLAIMS PROCESSOR [facility] LAST MENSTRUAL PERIOD INFORMATION NOT PROVIDED 04/20/2020 11:38 AM DENTAL CLAIMS PROCESSOR [facility] PREV PAP: [id number] 04/20/2020 11:38 AM DENTAL CLAIMS PROCESSOR [facility] PREV BX: INFORMATION NOT PROVIDED 04/20/2020 11:38 AM DENTAL CLAIMS PROCESSOR [facility] SOURCE Endocervix 04/20/2020 11:38 AM DENTAL CLAIMS PROCESSOR [facility] ADEQUACY: SEE COMMENT 04/20/2020 11:38 AM DENTAL CLAIMS PROCESSOR [facility] Comment: Satisfactory for evaluation. Endocervical/transformation zone component present. Age and/or menstrual status not provided PAP INTERP Negative for intraepithelial lesion or malignancy. 04/20/2020 11:38 AM DENTAL CLAIMS PROCESSOR [facility] COMMENT This Pap test has been evaluated with computer assisted technology. 04/20/2020 11:38 AM DENTAL CLAIMS PROCESSOR [facility] SIXTH GRADE TEACHER: SEE COMMENT 2019 11:38 AM DENTAL CLAIMS PROCESSOR [facility] Comment: TAYLOR CT(ASCP) CT screening location: [place] [address] [place] [id number] REVIEW SIXTH GRADE TEACHER: SEE COMMENT 04/20/2020 11:38 AM DENTAL CLAIMS PROCESSOR [facility] Comment: LUISITOK CT(ASCP) CT screening location: [place] [address] [place] [id number] EXPLANATORY NOTE SEE COMMENT 020 11:38 AM DENTAL CLAIMS PROCESSOR [facility] Comment: EXPLANATORY NOTE: The Pap is a screening test for cervical cancer. It is not a diagnostic test and is subject to false negative and false positive results. It is most reliable when a satisfactory sample, regularly obtained, is submitted with relevant clinical findings and history, and when the Pap result is evaluated along with historic and current clinical information. Genital SWAB OF ENDOCERVIX / Unknown Collection / Unknown 04/08/2020 1:27 PM DENTAL CLAIMS PROCESSOR 04/08/2020 9:54 PM DENTAL CLAIMS PROCESSOR Narrative [facility] - 04/20/2020 11:38 AM DENTAL CLAIMS PROCESSOR Performing Organization Information: ?Site ID: [id number] ?Name: [facility] ?Address: [facility] [place] [address] ?Director: Annabelle Meadows Performing Organization Information: ?Site ID: [id number] ?Name: [facility] ?Address: [facility] [place] [address] ?Director: Annabelle Meadows Smiley Rascon DO PATHOLOGY/CYTOLOGY ORDER LENORA Edited Result - Final [facility] [phone] from Last 3 Months or Most Recently Relevant to Health Maintenance Insurance [facility] [id number] RX [employer] Member Subscriber Plan / Payer (Ef fective for All Dates) Name:Afsaneh Lea Relation to Subscriber:Spouse Name:Afsaneh Lea Subscriber ID:Not on file Payer ID:Not on file Group ID:[id number] Type:RX Commercial Address: [place] Advance Directives For more information, please contact: [phone] * Full Code (Latest Code Status on File) Date Activated Date Inactivated Comments 12/15/2019 1:28 PM 12/17/2019 2:44 PM * Full Code Date Activated Date Inactivated Comments 12/15/2019 8:27 AM 12/15/2019 1:28 PM Care Teams Metal Products Viewer Relationship Specialty Start Date End Date Smiley Rascon DO PCP - General Family Practice 11/02/17
--- OUTSIDE RECORDS SUMMARY | 2024-06-17 15:37 | XMS_ITS | Clinical Summary ---
Author Organization [facility] Address [address] [place] [address]. [place] [address] [place] [address] Care Team Providers Care Java Front End Web Developer Name Role Phone Unavailable Primary Care Provider Unavailabl e Social History Tobacco Use Types Packs/Day Years Used Date Smoking Tobacco: Never Assessed Comments Unknown Sex and Gender Information Value Date Recorded Sex Assigned at Not on file Legal Sex Female 7:51 PM CDT Gender Identity Not on file Sexual Orientation Not on file Last Filed Vital Signs Vital Sign Reading Time Taken Comments Blood Pressure 98/64 11/03/2014 9:52 AM CDT Pulse 68 11/03/2014 9:52 AM CDT Temperature - - Respiratory Rate - - Oxygen Saturation - - Inhaled Oxygen Concentration - - Weight 54.4 kg (120 lb) 11/03/2014 9:52 AM CDT Height 162.6 cm (5' 4 ) 11/03/2014 9:52 AM CDT Body Mass Index 20.6 11/03/2014 9:52 AM CDT Plan of Treatment Health Maintenance Due Date Last Done Comments Cervical Cancer Screening Pa p Smear (Age 30 to 64) Every 3 Years 1991 Annual Physical 10/28/1994 Hepatitis C 10/28/2009 DTaP, Tdap and Td Vaccines ( 1 - Tdap) 10/28/2010 Hepatitis B Vaccines (1 of 3 - 19+ 3-dose series) 10/28/2010 Cervical Cancer Screening Pa p with HPV Testing (Age 30 to 64) Every 5 Years 10/28/2021 Cervical Cancer Screening with HPV 10/28/2021 COVID-19 Vaccine (2023-2 5 season) 2024 Influenza Adult (#1) 2024 HPV Vaccines Aged Out No longer eligi ble based on patient's age to complete this topic Meningococcal B Vaccine Aged Out No l onger eligible based on patient's age to complete this topic Meningococcal Vaccine Aged Out No patricia katja eligible based on patient's age to complete this topic Pneumococcal Vaccine: Pediat rics (0 to 5 Years) and At-Risk Patients (6 to 64 Years) Aged Out No longer eligible b ased on patient's age to complete this topic RSV Immunizations Under 20 Months Aged Out No longer eligible based on patient's age to complete this topic
--- NOTE | 2024-06-17 16:41 | ED_ITS ---
HPI - General Adult General Chief complaint: Abdominal Pain Stated complaint: LLQ pain Time Seen by Provider: 06/17/24 16:41 Focused HPI: Afsaneh Wilburn is a 24 y/o female who presents today with reports of left lower abdominal pain that she woke up with today. She states the pain has beccome severe. She took Pepto Bismol/ muscle relaxer / and the pain has increased Denies vomiting , but reports feeling nausea Last BM was today and normal. Urine today might of been darker LMP was about 3 weeks ago. NO hx of abdominal surgeries. She is post op 7 weeks of breast augmentation that she had done here GENERAL: Well-appearing, well-nourished, and in no acute distress. HEAD: Normocephalic, atraumatic. CHEST: Clear to auscultation. ?No respiratory distress. HEART: Regular rate and rhythm.? NEURO: ?Alert and oriented x3. Patient screened in triage and initial orders placed.? ?Additional care and disposition to be based upon?diagnostic testing and treatment. Related Data Home Medications ?Medication ?Instructions ?Recorded ?Confirmed ?Last Taken ?Type cetirizine 10 mg tablet (Zyrtec) 10 mg PO DAILY 04/21/22 04/14/24 04/23/24 History fluoxetine 10 mg capsule (Prozac) 20 mg PO DAILY 04/14/24 04/14/24 04/23/24 History Allergies Allergy/AdvReac Type Severity Reaction Status Date / Time egg Allergy Severe Anaphylaxis Verified 04/24/24 08:03 venlafaxine AdvReac Mild Nausea Verified 04/24/24 08:03 [facility] Past Medical History Medical History Abnormal bleeding in menstrual cycle Abnormal bruising Abnormal laboratory test result Allergies Anxiety Asthma Contraceptive management COVID-19 Discoloration of skin Encounter to establish care Eosinophilic esophagitis Galactorrhea Irregular menses Missed menses Nausea Poison jose Procreative management Screening for lipoid disorders Screening for metabolic disorder Upper respiratory infection Vitamin D deficiency Surgical History Surgical History History of loop electrical excision procedure (LEEP) 2016 Previous section (12/15/19) x1 [place] teeth extracted 2013 Family History Family History Mother Asthma Sibling Hypertension Heart problem Grandparent Acute myocardial infarction paternal grandfather Social History Social History Social History: caffeine-coffee/soda Smoking status: Never smoker Second hand tobacco smoke exposure: No Alcohol intake: current Drinks per week: 2 Alcohol use details: sometimes Substance use: never Substance use type: does not use Lack of Transportation: No Lack of Food: Never True Current Housing: I Have Housing Concerned About Future Housing: No Difficulty Paying Gas/Electric Bills: No Difficulty Paying for Meds: No Currently Unemployed: No Education: Bachelor's Degree Difficulty w/ Childcare or Family Care: No Living arrangements: with family Additional living arrangements comments: Occupation/Education: other 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 the Patient): Straight or Heterosexual Spiritual care concerns: No Course Vital Signs Vital signs: Vital Signs Temperature 36.7 C 06/17/24 15:37 Pulse Rate 83 06/17/24 15:37 Respiratory Rate 20 06/17/24 15:37 Blood Pressure 121/89 06/17/24 15:37 Pulse Oximetry 100 06/17/24 15:37 Oxygen Delivery Room Air 06/17/24 15:37 Temperature 36.9 C 06/17/24 18:09 Pulse Rate 78 06/17/24 18:09 Respiratory Rate 18 06/17/24 18:09 Blood Pressure 119/75 06/17/24 18:09 Pulse Oximetry 99 06/17/24 18:09 Oxygen Delivery Room Air 06/17/24 15:37 Medical Decision Making Vital Signs Vital Signs: Vital Signs Temperature 36.7 C 06/17/24 15:37 Pulse Rate 83 06/17/24 15:37 Respiratory Rate 20 06/17/24 15:37 Blood Pressure 121/89 06/17/24 15:37 Pulse Oximetry 100 06/17/24 15:37 Oxygen Delivery Room Air 06/17/24 15:37 Temperature 36.9 C 06/17/24 18:09 Pulse Rate 78 06/17/24 18:09 Respiratory Rate 18 06/17/24 18:09 Blood Pressure 119/75 06/17/24 18:09 Pulse Oximetry 99 06/17/24 18:09 Oxygen Delivery Room Air 06/17/24 15:37 Lab Data 06/17/24 18:09 06/17/24 18:09 Labs: Lab Results 06/17/24 06/17/24 06/17/24 Range/Units 18:09 18:11 18:14 WBC 8.5 (4.5-10.0) K/mm3 RBC 4.92 (4.2-5.4) M/mm3 Hgb 14.0 (12.0-15.0) g/dL Hct 41.8 (37.0-47.0) % MCV 85.0 (80-100) fl MCH 28.5 (26-34) pg MCHC 33.5 (32-36) g/dl RDW 12.8 (11.5-14.5) % Plt Count 254 (150-375) k/mm3 MPV 10.2 (7.4-10.4) fl Immature Gran % (Auto) 0.2 (0-0.5) % Neut % (Auto) 52.5 (45.5-73.1) % Lymph % (Auto) 27.7 (18.3-44.2) % [facility] % (Auto) 7.6 (2.6-8.5) % Eos % (Auto) 10.7 H (0-4.4) % Baso % (Auto) 1.3 H (0.2-1.2) % Lymph # (Auto) 2.36 (0.9-3.2) K/mm3 [facility] # (Auto) 0.7 H (0.1-0.6) K/mm3 Eos # (Auto) 0.9 H (0-0.3) K/mm3 Baso # (Auto) 0.1 (0.0-0.1) K/mm3 Abs Immat Gran (auto) 0.02 (0.00-0.031) K/mm3 Absolute Neuts (auto) 4.5 (1.3-6.7) K/mm3 Absolute Nucleated RBC 0.000 (0.0-0.012) K/mm3 Nucleated RBC % 0.0 (0.0-0.2) % Sodium 137 (137-145) mmol/L Potassium 4.0 (3.4-5.0) mmol/L Chloride 105 (98-107) mmol/L Carbon Dioxide 20 L (22-30) mmol/L Anion Gap 12 (4-12) mmol/L BUN 16 (7-17) mg/dL Creatinine 0.70 (0.7-1.0) mg/dL Estim Creat Clear Calc 86 ml/min Estimated GFR > 60 (59 - ) Glucose 105 (65-110) mg/dL Calcium 9.1 (8.4-10.2) mg/dL Total Bilirubin 0.4 (0.2-1.3) mg/dL AST 21 (14-36) U/L ALT 16 (6-35) U/L Alkaline Phosphatase 50 (38-126) U/L Total Protein 8.0 (6.3-8.2) g/dL Albumin 4.3 (3.5-5.1) g/dL Lipase 127 (23-300) U/L Urine Color Yellow (Yellow) Urine Appearance Clear (Clear) Urine pH 5.5 (5.0-9.0) Ur Specific [place] 1.033 (1.001-1.035) Urine Protein Negative (Negative) mg/dL Urine Glucose (UA) Negative (Negative) mg/dL Urine Ketones Trace H (Negative) mg/dL Ur Blood (Man) Negative (Negative) Urine Nitrate Negative (Negative) Urine Bilirubin Negative (Negative) Urine Urobilinogen 1.0 (<2.0) mg/dL Leukocyte Esterase Rfl Negative (Negative) FRANCI/UL POC Urine HCG, Qual Negative (Negative) Discharge Plan Discharge Clinical Impression: Abdominal pain Qualifiers: Abdominal location: generalized Qualified Code(s): R10.84 - Generalized abdominal pain Patient Disposition: Elopement After Seen by Prov Condition: Stable Instructions: Antibiotic Form Patient Language: Albanian Prescriptions: No Action cetirizine [Zyrtec] 10 mg tablet 10 mg PO DAILY omeprazole 40 mg capsule,delayed release(DR/EC) 40 mg PO .daily Qty: 30 5RF fluoxetine [Prozac] 10 mg capsule 20 mg PO DAILY albuterol sulfate 90 mcg/actuation HFA aerosol inhaler 2 inh inhalation Q4H PRN (Reason: shortness of breath or wheezing) Qty: 8.5 0RF Follow-up/Referrals: Jossy Beyer, CLINICAL REHABILITATION AIDE-C [Primary Care Provider] -
[2024-06-17 18:09] VITALS: BP 119/75; PULSE 78; RESP 18; TEMP 36.9; O2SAT 99
[2024-06-17 18:16] LABS: BEDSIDEPREGUCG Negative (Negative)
[2024-06-17 18:17] LABS: Basophils Absolute Auto 0.1 K/mm3 (0.0-0.1); Basophils Percent Auto 1.3 % (0.2-1.2); Eosinophils Absolute Auto 0.9 K/mm3 (0-0.3); Eosinophils Percent Auto 10.7 % (0-4.4); Hematocrit 41.8 % (37.0-47.0); Immature Granulocyte Absolute 0.02 K/mm3 (0.00-0.031); Immature Granulocyte Percent A 0.2 % (0-0.5); Lymphocytes Absolute Auto 2.36 K/mm3 (0.9-3.2); Lymphocytes Percent Auto 27.7 % (18.3-44.2); Mean Corpuscular HGB Conc 33.5 g/dl (32-36); Mean Corpuscular Hemoglobin 28.5 pg (26-34); Mean Platelet Volume 10.2 fl (7.4-10.4); Monocytes Absolute Auto 0.7 K/mm3 (0.1-0.6); Monocytes Percent Auto 7.6 % (2.6-8.5); Neutrophils Absolute Auto 4.5 K/mm3 (1.3-6.7); Neutrophils Percent Auto 52.5 % (45.5-73.1); Platelet Count Result 254 k/mm3 (150-375); Red Blood Count 4.92 M/mm3 (4.2-5.4); Red Cell Distribution Width 12.8 % (11.5-14.5); White Blood Count 8.5 K/mm3 (4.5-10.0)
[2024-06-17 18:19] LABS: Add Urine Microscopic? NO; Appearance Urine Clear (Clear); Bilirubin Urine Negative (Negative); Blood Urine Negative (Negative); Color Urine Yellow (Yellow); Glucose Urine UA Negative (Negative); Ketones Urine Trace mg/dL (Negative); Leukocyte Esterase Ur Negative LEU/UL (Negative); Nitrate Urine Negative (Negative); Protein Urine Negative (Negative); Specific Grav Ur 1.033 (1.001-1.035); pH Urine 5.5 (5.0-9.0)
[2024-06-17 18:31] LABS: Alanine Aminotransferase 16 U/L (6-35); Albumin Level 4.3 g/dL (3.5-5.1); Alkaline Phosphatase 50 U/L (38-126); Anion Gap 12 mmol/L (4-12); Aspartate Amino Transferase 21 U/L (14-36); Bilirubin,Total 0.4 mg/dL (0.2-1.3); Blood Urea Nitrogen 16 mg/dL (7-17); Calcium 9.1 mg/dL (8.4-10.2); Carbon Dioxide 20 mmol/L (22-30); Chloride 105 mmol/L (98-107); Estimated CRCL calculation 86 ml/min; Estimated Glomerular Filt Rate > 60; Glucose 105 mg/dL (65-110); Lipase 127 U/L (23-300); Sodium 137 mmol/L (137-145)
--- NOTE | 2024-06-17 19:16 | PC.NURSE ---
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 Pt observed ambulatory with steady gait out the exit. No distress noted.
--- OUTSIDE RECORDS SUMMARY | 2024-06-17 19:43 | XMS_ITS | Clinical Summary ---
Author Organization [facility] Address [address] [place] [address]. 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
--- OUTSIDE RECORDS SUMMARY | 2024-06-17 19:43 | XMS_ITS | Clinical Summary ---
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 [employer] Name Role Phone Smiley Rascon DO Primary [...] Comments Blood Pressure 144/92 04/08/2020 1:32 PM DESIGN RELEASE ENGINEER Pulse 62 04/08/2020 1:32 PM DESIGN RELEASE ENGINEER Temperature 36.6 ??C (97.9 ??F) 12/17/2019 7:23 AM CD T Respiratory Rate 18 12/17/2019 7:23 AM CDT Oxygen Saturation 97% 04/08/2020 1:32 PM DESIGN RELEASE ENGINEER Inhaled Oxygen Concentration - - Weight 64.9 kg (143 lb) 04/08/2020 1:32 PM DESIGN RELEASE ENGINEER Height 162.6 cm (5' 4 ) 04/08/2020 1:32 PM DESIGN RELEASE ENGINEER Body Mass Index 24.55 04/08/2020 1:32 PM DESIGN RELEASE ENGINEER Plan of Treatment Health Maintenance Due Date [...] BASED SCREEN PAP Routine 04/08/2020 1:27 PM DESIGN RELEASE ENGINEER Well woman exam with routine gynecological exam from Last 3 Months or Most Recently Relevant to Health Maintenance Results * CERV/VAG CYTO AGE BASED SCREEN PAP (04/08/2020 1:27 PM DESIGN RELEASE ENGINEER) COMMENT (PAP): SEE COMMENT 0 11:38 AM DESIGN RELEASE ENGINEER [facility] Comment: This order for age-based cervical cancer and STI screening follows ACOG guidelines(PB 168, 140, TTI098). See individual assays for performing site location. CLINICAL INFORMATION SCREENING 04/20/2020 11:38 AM DESIGN RELEASE ENGINEER [facility] LAST MENSTRUAL PERIOD INFORMATION NOT PROVIDED 04/20/2020 11:38 AM DESIGN RELEASE ENGINEER [facility] PREV PAP: [id number] 04/20/2020 11:38 AM DESIGN RELEASE ENGINEER [facility] PREV BX: INFORMATION NOT PROVIDED 04/20/2020 11:38 AM DESIGN RELEASE ENGINEER [facility] SOURCE Endocervix 04/20/2020 11:38 AM DESIGN RELEASE ENGINEER [facility] ADEQUACY: SEE COMMENT 04/20/2020 11:38 AM DESIGN RELEASE ENGINEER [facility] Comment: Satisfactory for evaluation. Endocervical/transformation zone component present. Age and/or menstrual status not provided PAP INTERP Negative for intraepithelial lesion or malignancy. 04/20/2020 11:38 AM DESIGN RELEASE ENGINEER [facility] COMMENT This Pap test has been evaluated with computer assisted technology. 04/20/2020 11:38 AM DESIGN RELEASE ENGINEER [facility] LAYOUT DESIGNER: SEE COMMENT 2019 11:38 AM DESIGN RELEASE ENGINEER [facility] Comment: TAY[place] CT(ASCP) CT screening location: [place] [address] [place] [id number] REVIEW LAYOUT DESIGNER: SEE COMMENT 04/20/2020 11:38 AM DESIGN RELEASE ENGINEER [facility] Comment: LUISIT[place] CT(ASCP) CT screening location: [place] [address] [place] [address] EXPLANATORY NOTE SEE COMMENT 020 11:38 AM DESIGN RELEASE ENGINEER [facility] Comment: EXPLANATORY NOTE: The Pap is a [...] Unknown Collection / Unknown 04/08/2020 1:27 PM DESIGN RELEASE ENGINEER 04/08/2020 9:54 PM DESIGN RELEASE ENGINEER Narrative [email or web address] RE[facility]ENCE [facility] - 04/20/2020 11:38 AM DESIGN RELEASE ENGINEER Performing Organization Information: ?Site ID: SL ?Name[facility] ?Address: [facility] [place] [address] ?Director: Annabelle Meadows Performing Organization Information: ?Site ID: SL ?Name: [facility] ?Address: [facility] [place] [address] ?Director: Annabelle Meadows Smiley Rascon DO PATHOLOGY/CYTOLOGY ORDER [place] Edited Result - Final [facility] [phone] from Last 3 Months or Most Recently Relevant to Health Maintenance Insurance [facility] [id number] RX [employer] Member Subscriber Plan / Payer (Ef fective for All Dates) Name:Afsaneh Lea Relation to Subscriber:Spouse Name:Afsaneh Lea Subscriber ID:Not on file Payer ID:Not on file Group ID:[id number] Type:RX Commercial Address: [place] Advance Directives For more information, please contact: [phone] * Full Code (Latest Code Status on File) Date Activated Date Inactivated Comments 12/15/2019 1:28 PM 12/17/2019 2:44 PM * Full Code Date Activated Date Inactivated Comments 12/15/2019 8:27 AM 12/15/2019 1:28 PM Care Teams 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
== END 2024-06-17 19:16 | disposition left against medical advice (07) ==
LOC: ANHED 19:41
PROVIDERS: Emergency Provider Nurse Practitioner Family; PCP Clinical Nurse Specialist
DX: R10.84 Generalized abdominal pain (principal); J45.909 Unspecified asthma, uncomplicated; Z86.16 Personal history of COVID-19; E55.9 Vitamin D deficiency, unspecified
CPT/HCPCS: 36415; 80053; 81003; 81025; 83690; 85025; 99283